=== PATIENT | male | born 1960 | race Caucasian/White ===

== ENCOUNTER 2017-04-29 08:27 | Emergency (ER) | payer BC ==
--- NOTE | 2017-04-29 09:19 | EDM.PDOC ---
<Amy Mcginnis - Last Filed: 04/29/17 09:12> ED HPI GENERAL MEDICAL PROBLEM - General Chief Complaint: Gastrointestinal Problem Stated Complaint: COUGH/CONGESTION-NO APPETITE Time Seen by Provider: 04/29/17 08:52 - History of Present Illness INITIAL COMMENTS - FREE TEXT/NARRATIVE: Patient is a 57 year old male here today for complaints of body aches and flu- like symptoms since Thursday. He reports chills, fever, dry scratchy throat and nonproductive cough. He has had N/V, dry heaves, and no appetite due to his nausea. He has also had ongoing diarrhea since Thursday night. He denies headaches , chest pain, or hemoptysis, or bloody stools. He recently traveled to [place]. He did not receive a flu vaccine but not had any known exposure to illness. He has a history of CABGx3 and mechanical valve replacement in 2007. He is on warfarin and aspirin therapy. - Related Data Allergies Allergy/AdvReac Type Severity Reaction Status Date / Time No Known Allergies Allergy Verified 04/29/17 08:41 Home Meds: Home Meds Aspirin [Halfprin] 81 mg PO DAILY 04/29/17 [History] Crestor. 1 tab PO DAILY 04/29/17 [History] Metoprolol. 1 tab PO DAILY 04/29/17 [History] Warfarin Sodium [Coumadin] 7.5 mg PO MOWEFR 04/29/17 [History] Warfarin [Coumadin] 5 mg PO SUTUTHSA 04/29/17 [History] Past Medical History Cardiovascular History: Reports: [place] - Past Surgical History HEENT Surgical History: Reports: Tonsillectomy Cardiovascular Surgical History: Reports: Valve Replacement, Other (See Below) Other Cardiovascular Surgeries/Procedures: triple bypass Social & Family History - Tobacco Use Smoking Status *Q: Never Smoker Second Hand Smoke Exposure: No - Caffeine Use Caffeine Use: Reports: Soda - Recreational Drug Use Recreational Drug Use: No ED ROS GENERAL - Review of Systems Constitutional: Reports: Fever, Chills, Fatigue, Decreased Appetite HEENT: Reports: No Symptoms Respiratory: Reports: Cough. Denies: Shortness of Breath, Hemoptysis Cardiovascular: Denies: Chest Pain Endocrine: Reports: Fatigue GI/Abdominal: Reports: Diarrhea, Decreased Appetite, Nausea, Vomiting. Denies: Abdominal Pain, Bloody Stool, Melena Musculoskeletal: Reports: No Symptoms Skin: Reports: No Symptoms Neurological: Reports: No Symptoms Psychiatric: Reports: No Symptoms Hematologic/Lymphatic: Reports: No Symptoms Immunologic: Reports: No Symptoms ED EXAM, GI/ABD - Physical Exam Exam Limited By: No Limitations General Appearance: Alert, No Apparent Distress Ears: Normal External Exam Nose: Normal Inspection. No: Nasal Swelling Throat/Mouth: Normal Inspection Head: Atraumatic. No: Sinus Tenderness Respiratory/Chest: No Respiratory Distress, Wheezing (minor expiratory) Cardiovascular: Normal Peripheral Pulses, Regular Rate, Rhythm, Other ( mechanical valve) GI/Abdominal Exam: Normal Bowel Sounds, Soft, Non-Tender, No Distention Extremities: Normal Inspection Neurological: Alert, Oriented Course - Vital Signs Last Recorded V/S: Last Vital Signs Temp 96.5 F 04/29/17 08:43 Pulse 80 04/29/17 08:43 Resp 18 04/29/17 08:43 BP 151/95 H 04/29/17 08:43 Pulse Ox 95 04/29/17 08:43 - Orders/Labs/Meds Orders: Active Orders 24 hr Category Date Time Status Sodium Chloride 0.9% [Normal Saline] 1,000 ml Med 04/29/17 09:45 Active IV ONETIME Medication Orders Sodium Chloride (Normal Saline) 1,000 mls @ 999 mls/hr IV ONETIME SAPPHIRE Last Admin: 04/29/17 09:57 Dose: 999 mls/hr Meds: Medications Generic Name Dose Route Start Last Admin Trade Name Freq PRN Reason Stop Dose Admin Sodium Chloride 1,000 mls @ 999 mls/hr 04/29/17 09:45 04/29/17 09:57 Normal Saline IV 999 mls/hr ONETIME SAPPHIRE Administration Discontinued Medications Generic Name Dose Route Start Last Admin Trade Name Freq PRN Reason Stop Dose Admin Ondansetron HCl 4 mg 04/29/17 09:43 04/29/17 09:57 Zofran IVPUSH 04/29/17 09:44 4 mg ONETIME ONE Administration Departure - Departure Disposition: Home, Self-Care 01 Clinical Impression: Influenza A - Discharge Information Instructions: Influenza, Adult, [id number] Referrals: Bassam Giles MD [Primary Care Provider] - Forms: ED Department Discharge Additional Instructions: Rest, clear liquids and bland diet as tolerated, probiotic 2-3 times daily to help your diarrhea, vitamin C or multivitamin recommended. Vaporizer or steam as needed, Tylenol 2-3 times daily as needed. Clinic if not much better within 2 -3 days as expected, return to ED as needed if symptoms worsening in any way. - My Orders Last 24 Hours: My Active Orders 04/29/17 09:45 Sodium Chloride 0.9% [Normal Saline] 1,000 ml IV ONETIME - Assessment/Plan Last 24 Hours: My Active Orders 04/29/17 09:45 Sodium Chloride 0.9% [Normal Saline] 1,000 ml IV ONETIME <Luis Eduardo Nesbitt - Last Filed: 04/29/17 13:10> ED HPI GENERAL MEDICAL PROBLEM - General Source of Information: Reports: Patient, RN Notes Reviewed ED ROS GENERAL - Review of Systems Review Of Systems: See Below ED EXAM, GI/ABD - Physical Exam Exam: See Below Course - Re-Assessments/Exams Free Text/Narrative Re-Assessment/Exam: 04/29/17 13:09 I agree with hx and exam as documented by Amy Reed, influenza screen did come back positive. Chest x-ray normal. He does feel somewhat better after 1 L of IV fluid, discharge instructions as documented Departure - Departure Time of Disposition: 11:36 Condition: Fair
[2017-04-29] MEDS: Sodium Chloride 0.9% 1,000 ML IV SCH (09:57)
[2017-04-29] MEDS: Ondansetron 4 MG/2 ML SDV IVPUSH ONE (09:57)
--- NOTE | 2017-04-29 10:37 | CR ---
Chest: Portable view of the chest was obtained. Comparison: Prior chest x-ray of 02/06/09. Heart is enlarged. Sternotomy is noted for prosthetic heart valve. Lungs are clear. Bony structures are grossly intact. Impression: 1. Nothing acute is appreciated on portable chest x-ray. Diagnostic code #2
== END 2017-04-29 11:50 | disposition home or self-care (01) ==
LOC: JD.ED 08:27
DX: J10.1 Influenza due to other identified influenza virus with other respiratory manifestations (principal); Z79.82 Long term (current) use of aspirin; Z95.1 Presence of aortocoronary bypass graft
CPT/HCPCS: 71045; 87804; 96361; 96374; 99284; J2405; J7040

== ENCOUNTER 2019-01-07 09:22 | Emergency (ER) | payer BC ==
--- NOTE | 2019-01-07 10:08 | EDM.PDOC ---
<Alanna Landis - Last Filed: 01/07/19 10:08> ED HPI GENERAL MEDICAL PROBLEM - General Chief Complaint: Respiratory Problem Stated Complaint: SOB AND WEAK Time Seen by Provider: 01/07/19 10:05 - History of Present Illness INITIAL COMMENTS - FREE TEXT/NARRATIVE: Patient is a 58 year old male with known cardiovascular history including stent placement and valve replacement who presents to the ED for evaluation of worsening shortness of breath and cough. The patient was evaluated on Thursday for muscle aches, decreased appetite and shortness of breath with chest xrays and influenza screening, both of which were negative per the patient. The patient told that he had a viral illness. Since Thursday, the patient notes that he has had worsening shortness of breath, development of a productive cough, continued decreased appetite and nause. He has noted improvement of his body aches however. He has not had any vomiting since Thursday and denies hematoemesis. Patient denies constipation, diarrhea, changes in stool, difficulty urinating, pain with urination or changes in skin. He does report that he feels like he had a fever on and off since Thursday, but has not taken his temperature. He also notes a 10 pound weight loss in this week. He denies recent travel. He does note that other people at work seem to be sick with a similar illness. He has attempted to take Tylenol and Mucinex, with minimal improvement. Onset: Gradual Duration: Day(s): Headache Pain Score (Numeric/FACES): 2 - Related Data Allergies Allergy/AdvReac Type Severity Reaction Status Date / Time No Known Allergies Allergy Verified 01/07/19 09:29 Home Meds: Home Meds Aspirin [Halfprin] 81 mg PO DAILY 04/29/17 [History] Warfarin Sodium [Coumadin] 7.5 mg PO MOFR 04/29/17 [History] Warfarin [Coumadin] 5 mg PO SUTUWETHSA 04/29/17 [History] Albuterol [Proventil HFA] 2 puff INH Q4H PRN #1 inhaler 01/07/19 [Rx] Codeine/Promethazine [Phenergan with Codeine] 5 - 10 ml PO Q6HR PRN #300 ml 03/27 [Rx] Doxycycline [Vibramycin] 100 mg PO BID #14 cap 01/07/19 [Rx] Losartan/Hydrochlorothiazide [Hyzaar 100-12.5 Tablet] 12.5 - 100 mg PO DAILY 03/27 [History] Metoprolol Tartrate 50 mg PO DAILY 01/07/19 [History] Rosuvastatin Calcium 20 mg PO DAILY 01/07/19 [History] Ubidecarenone [Coenzyme Q10] 100 mg PO DAILY 01/07/19 [History] Past Medical History Cardiovascular History: Reports: High Cholesterol, Hypertension, PA Respiratory History: Reports: Bronchitis, Recurrent, Pneumonia, Recurrent Neurological History: Reports: Migraines Endocrine/Metabolic History: Reports: Diabetes, Type II Other Endocrine/Metabolic History: short-term DM after PA, had hypoglycemia. Oncologic (Cancer) History: Reports: Basal Cell Carcinoma Dermatologic History: Reports: Other (See Below) Other Dermatologic History: skin CA. - Infectious Disease History Infectious Disease History: Reports: Chicken Pox, Measles, Mumps - Past Surgical History HEENT Surgical History: Reports: LASIK, Tonsillectomy Cardiovascular Surgical History: Reports: Valve Replacement, Other (See Below) Other Cardiovascular Surgeries/Procedures: triple bypass GI Surgical History: Reports: Colonoscopy Social & Family History - Tobacco Use Smoking Status *Q: Never Smoker Second Hand Smoke Exposure: No - Caffeine Use Caffeine Use: Reports: Other Other Caffeine Use: cappichino - Recreational Drug Use Recreational Drug Use: No ED ROS GENERAL - Review of Systems Review Of Systems: See Below Constitutional: Reports: Fever (Subjective), Chills (Worse on Thursday), Decreased Appetite, Weight Loss (10 pound weight loss this week ) HEENT: Reports: No Symptoms, Throat Pain (Attributes to cough). Denies: Ear Pain, Eye Discharge, Eye Pain, Hearing Loss, Rhinitis, Vision Change Respiratory: Reports: Shortness of Breath, Cough Cardiovascular: Reports: Chest Pain, Lightheadedness. Denies: Edema, Palpitations GI/Abdominal: Reports: Anorexia, Decreased Appetite. Denies: Abdominal Pain, Black Stool, Bloody Stool, Constipation, Diarrhea, Hematemesis, Hematochezia, Melena : Reports: No Symptoms Musculoskeletal: Reports: Muscle Pain (Improved since thursday) Skin: Reports: No Symptoms Neurological: Reports: Headache (Throbbing) Psychiatric: Reports: No Symptoms Immunologic: Reports: No Symptoms ED EXAM, GENERAL - Physical Exam Exam: See Below () General Appearance: Alert, WD/WN, No Apparent Distress, Other (Vitals: Temp 98.2 , Pulse 98, Respirations 18, BP 139/88, Pulse Ox 91% on RA) Ears: Normal External Exam, Hearing Grossly Normal Nose: Normal Inspection Throat/Mouth: Normal Inspection, Normal Lips, Normal Voice Neck: Normal Inspection Respiratory/Chest: Chest Non-Tender, Decreased Breath Sounds, Rhonchi (Left lower base), Wheezing Cardiovascular: Normal Peripheral Pulses, No Gallop, No JVD, Other (Grade 3/4 click due to known valve replacement) Peripheral Pulses: 2+: Radial (L), Radial (R), Posterior Tibial (L), Posterior Tibial (R) GI/Abdominal: Normal Bowel Sounds, Soft, Non-Tender, No Organomegaly, No Distention Back Exam: Normal Inspection Extremities: Normal Inspection, Non-Tender, No Pedal Edema, Normal Capillary Refill Neurological: Alert, Oriented, CN II-XII Intact, Normal Cognition Psychiatric: Normal Affect, Normal Mood Skin Exam: Warm, Dry, Intact, Normal Color, No Rash Course - Vital Signs Last Recorded V/S: Last Vital Signs Temp 99.0 F 01/07/19 11:50 Pulse 84 01/07/19 11:50 Resp 16 01/07/19 11:50 BP 130/83 01/07/19 11:50 Pulse Ox 96 01/07/19 11:50 - Orders/Labs/Meds Orders: Active Orders 24 hr Category Date Time Status Cardiac Monitoring [RC] . DIRECTED Care 01/07/19 10:28 Active Oxygen Therapy [RC] PRN Care 01/07/19 10:28 Active Oxygen Therapy, ED [RC] ASDIRECTED Care 01/07/19 10:14 Active Peripheral IV Care [RC] . DIRECTED Care 01/07/19 10:28 Active RT Aerosol Therapy [RC] ASDIRECTED Care 01/07/19 10:29 Active Sodium Chloride 0.9% [Normal Saline] 1,000 ml Med 01/07/19 10:30 Active IV .BOLUS Sodium Chloride 0.9% [Saline Flush] Med 01/07/19 10:28 Active 10 ml FLUSH ASDIRECTED PRN Peripheral IV Insertion Adult [OM.PC] Stat Oth 01/07/19 10:28 Ordered Medication Orders Sodium Chloride (Normal Saline) 1,000 mls @ 1,000 mls/hr IV .BOLUS SAPPHIRE Last Admin: 01/07/19 10:49 Dose: 1,000 mls/hr Sodium Chloride (Saline Flush) 10 ml FLUSH ASDIRECTED PRN PRN Reason: Keep Vein Open Last Admin: 01/07/19 10:40 Dose: 10 ml Labs: Laboratory Tests 01/07/19 01/07/19 Range/Units 10:40 10:40 WBC 7.60 (4.23-9.07) K/mm3 RBC 4.90 (4.63-6.08) M/mm3 Hgb 14.3 (13.7-17.5) gm/dl Hct 42.4 (40.1-51.0) % MCV 86.5 (79.0-92.2) fl MCH 29.2 (25.7-32.2) pg MCHC 33.7 (32.2-35.5) g/dl RDW Std Deviation 44.0 H (35.1-43.9) fL Plt Count 210 (163-337) K/mm3 MPV 10.4 (9.4-12.3) fl Neut % (Auto) 77.1 H (34.0-67.9) % Lymph % (Auto) 8.3 L (21.8-53.1) % [place] % (Auto) 14.2 H (5.3-12.2) % Eos % (Auto) 0 L (0.8-7.0) Baso % (Auto) 0.3 (0.1-1.2) % Neut # (Auto) 5.86 H (1.78-5.38) K/mm3 Lymph # (Auto) 0.63 L (1.32-3.57) K/mm3 [place] # (Auto) 1.08 H (0.30-0.82) K/mm3 Eos # (Auto) 0.00 L (0.04-0.54) K/mm3 Baso # (Auto) 0.02 (0.01-0.08) K/mm3 Manual Slide Review Abnormal smear Sodium 139 (136-145) mEq/L Potassium 3.8 (3.5-5.1) mEq/L Chloride 102 (98-107) mEq/L Carbon Dioxide 28 (21-32) mEq/L Anion Gap 12.8 (5-15) BUN 16 (7-18) mg/dL Creatinine 1.0 (0.7-1.3) mg/dL Est Cr Clr Drug Dosing 102.71 mL/min Estimated GFR (MDRD) > 60 (>60) mL/min BUN/Creatinine Ratio 16.0 (14-18) Glucose 142 H (74-106) mg/dL Calcium 9.2 (8.5-10.1) mg/dL Total Bilirubin 0.8 (0.2-1.0) mg/dL AST 41 H (15-37) U/L ALT 59 (16-63) U/L Alkaline Phosphatase 74 (46-116) U/L C-Reactive Protein 10.0 H* (<1.0) mg/dL Total Protein 7.5 (6.4-8.2) g/dl Albumin 3.5 (3.4-5.0) g/dl Globulin 4.0 gm/dL Albumin/Globulin Ratio 0.9 L (1-2) Meds: Medications Generic Name Dose Route Start Last Admin Trade Name Freq PRN Reason Stop Dose Admin Sodium Chloride 1,000 mls @ 1,000 mls/hr 01/07/19 10:30 01/07/19 10:49 Normal Saline IV 1,000 mls/hr .BOLUS SAPPHIRE Administration Sodium Chloride 10 ml 01/07/19 10:28 01/07/19 10:40 Saline Flush FLUSH 10 ml ASDIRECTED PRN Administration Keep Vein Open Discontinued Medications Generic Name Dose Route Start Last Admin Trade Name Freq PRN Reason Stop Dose Admin Albuterol/Ipratropium 3 ml 01/07/19 10:29 01/07/19 11:00 Duoneb 3.0-0.5 Mg/3 Ml NEB 01/07/19 10:30 3 ml ONETIME ONE Administration Departure - Departure Disposition: Admitted As Inpatient 67 Clinical Impression: Bronchitis - Discharge Information Prescriptions: Codeine/Promethazine [Phenergan with Codeine] 5 - 10 ml PO Q6HR PRN #300 ml PRN Reason: Cough Albuterol [Proventil HFA] 2 puff INH Q4H PRN #1 inhaler PRN Reason: Shortness Of Breath Doxycycline [Vibramycin] 100 mg PO BID #14 cap Referrals: Bassam Giles MD [Primary Care Provider] - 1 Week Forms: ED Department Discharge Additional Instructions: Take the doxycycline 2 times per day for 7 days. Use the albuterol inhaler 2 puffs every 4 to 6 hours as needed for shortness of breath. Take the phenergan with codeine 5 to 10 mls every 6 hours as needed for cough. Follow up with Dr Giles within a week. Have your INR checked within a week. The doxycycline can affect the coumadin. Please return if you are worse. - My Orders Last 24 Hours: My Active Orders 01/07/19 10:14 Oxygen Therapy, ED [RC] ASDIRECTED 01/07/19 10:28 Cardiac Monitoring [RC] . DIRECTED Oxygen Therapy [RC] PRN Peripheral IV Care [RC] . DIRECTED Sodium Chloride 0.9% [Saline Flush] 10 ml FLUSH ASDIRECTED PRN Peripheral IV Insertion Adult [OM.PC] Stat 01/07/19 10:29 RT Aerosol Therapy [RC] ASDIRECTED 01/07/19 10:30 Sodium Chloride 0.9% [Normal Saline] 1,000 ml IV .BOLUS - Assessment/Plan Last 24 Hours: My Active Orders 01/07/19 10:14 Oxygen Therapy, ED [RC] ASDIRECTED 01/07/19 10:28 Cardiac Monitoring [RC] . DIRECTED Oxygen Therapy [RC] PRN Peripheral IV Care [RC] . DIRECTED Sodium Chloride 0.9% [Saline Flush] 10 ml FLUSH ASDIRECTED PRN Peripheral IV Insertion Adult [OM.PC] Stat 01/07/19 10:29 RT Aerosol Therapy [RC] ASDIRECTED 01/07/19 10:30 Sodium Chloride 0.9% [Normal Saline] 1,000 ml IV .BOLUS <Galindo Mcpherson - Last Filed: 01/07/19 12:34> ED HPI GENERAL MEDICAL PROBLEM - History of Present Illness Severity: Moderate Improves with: Reports: None Worsens with: Reports: None Associated Symptoms: Reports: Cough, Fever/Chills, Shortness of Breath. Denies : Chest Pain, Headaches, Nausea/Vomiting ED EXAM, GENERAL - Physical Exam Exam Limited By: No Limitations Course - Re-Assessments/Exams Free Text/Narrative Re-Assessment/Exam: 01/07/19 12:24 I examined the patient myself and I agree with Alanna's assessment and plan. I ordered an IV saline lock, CXR, labs and duoneb. His CXR shows nothing acute. His CBC looks good. His glucose is elevated at 142. His AST is elevated at 41. His CRP is elevated at 10. He is oxygenating better. I will get him on some doxycycline, albuterol and something for the cough. Departure - Departure Time of Disposition: 12:28 Condition: Good - Discharge Information *PRESCRIPTION DRUG MONITORING PROGRAM REVIEWED*: No *COPY OF PRESCRIPTION DRUG MONITORING REPORT IN PATIENT KLAUDIA: No
[2019-01-07] MEDS ORDERED: Sodium Chloride 0.9% 10 ML Syringe FLUSH PRN (10:28)
[2019-01-07] MEDS ORDERED: Albuterol/Ipratropium 3.0-0.5 MG/3 ML Neb Soln NEB ONE (10:29)
[2019-01-07] MEDS ORDERED: Sodium Chloride 0.9% 1,000 ML IV SCH (10:30)
--- NOTE | 2019-01-07 12:01 | CR ---
Chest: Two views of the chest were obtained. Comparison: Prior chest x-ray of 04/29/17. Heart is enlarged. Previous sternotomy is noted with prosthetic heart valve. Lungs are clear with no acute parenchymal change. Bony structures appear within normal limits. Impression: 1. Mildly enlarged heart with previous prosthetic heart valve. 2. Nothing acute is seen. Diagnostic code #2
== END 2019-01-07 12:55 | disposition critical access hospital (66) ==
LOC: JD.ED 09:22
DX: J40 Bronchitis, not specified as acute or chronic (principal); I25.2 Old myocardial infarction; E11.9 Type 2 diabetes mellitus without complications; I10 Essential (primary) hypertension; E78.00 Pure hypercholesterolemia, unspecified; Z85.828 Personal history of other malignant neoplasm of skin; Z79.82 Long term (current) use of aspirin; Z79.01 Long term (current) use of anticoagulants; Z79.899 Other long term (current) drug therapy
CPT/HCPCS: 36415; 71046; 80053; 85025; 86140; 94640; J7040; 96360; 99283; 99285-25; J7620-GY

== ENCOUNTER 2019-10-16 08:07 | Emergency (ER) | payer BC ==
[2019-10-16] MEDS ORDERED: Cephalexin 500 MG Cap PO STA (08:47)
--- NOTE | 2019-10-16 08:52 | EDM.PDOC ---
ED HPI GENERAL MEDICAL PROBLEM - General Chief Complaint: Bite:Animal, Insect Stated Complaint: INSECT BITE TO FOOT-SWOLLEN,RED AND BLISTERING Time Seen by Provider: 10/16/19 08:17 Source of Information: Reports: Patient History Limitations: Reports: No Limitations - History of Present Illness INITIAL COMMENTS - FREE TEXT/NARRATIVE: Mr. Polanco is a very pleasant 59-year-old gentleman who now presents to the ED with essentially painless swelling and redness to the medial aspect of his right foot since yesterday, after either stepping on something sharp or being bitten by an insect while walking barefoot in his backyard this past evening, 10/13/2019. He states that it was dark, and a hole he could see was a something black on his foot, which he flicked off. He states that he really cannot say whether or not it was an insect or something inanimate. He has not had a fever. No prior similar reaction to insect bites. Here in the ED, the patient's initial BP is found to be elevated at 161/85, with bradycardia of 58 bpm. He is afebrile, saturating 97% on room air. Other than his right foot swelling, the patient denies recent fever, chills, sore throat, ear pain, nasal or sinus congestion, cough, dyspnea, chest pain, palpitations, nausea, vomiting, constipation, diarrhea, abdominal pain, urinary symptoms, recent weight gain or weight loss, recent bloody bowel movements or black bowel movements, recent joint aches, headaches, or rashes. The patient's PCP is Dr. Bassam Giles. His Joy Operator is Dr. Hitesh Arriola. - Related Data Allergies Allergy/AdvReac Type Severity Reaction Status Date / Time No Known Allergies Allergy Verified 01/07/19 09:29 Home Meds: Home Meds Aspirin [Halfprin] 81 mg PO DAILY 04/29/17 [History] Warfarin Sodium [Coumadin] 7.5 mg PO MOFR 04/29/17 [History] Warfarin [Coumadin] 5 mg PO SUTUWETHSA 04/29/17 [History] Losartan/Hydrochlorothiazide [Hyzaar 100-12.5 Tablet] 12.5 - 100 mg PO DAILY 01/07/19 [History] Metoprolol Tartrate 50 mg PO DAILY 01/07/19 [History] Rosuvastatin Calcium 20 mg PO DAILY 01/07/19 [History] Ubidecarenone [Coenzyme Q10] 100 mg PO DAILY 01/07/19 [History] cephALEXin [Keflex] 1 tab PO Q6H #40 capsule 10/16/19 [Rx] Past Medical History Cardiovascular History: Reports: CAD, High Cholesterol, Hypertension, [place] (2008) Endocrine/Metabolic History: Reports: Obesity/BMI 30+, Other (See Below) (Prediabetes) Oncologic (Cancer) History: Reports: Basal Cell Carcinoma (face) - Infectious Disease History Infectious Disease History: Reports: Chicken Pox, Measles, Mumps - Past Surgical History HEENT Surgical History: Reports: Adenoidectomy, LASIK (bilateral), Oral Surgery (wisdom teeth extracted), Tonsillectomy Cardiovascular Surgical History: Reports: Coronary Artery Bypass (x 3 vessel, 2007), Valve Replacement (mechanical - mary does joya know which valve, 2007) GI Surgical History: Reports: Colonoscopy (x 1) Oncologic Surgical History: Reports: Other (See Below) (BCC excised from face) Social & Family History - Family History Family Medical History: Noncontributory - Tobacco Use Smoking Status *Q: Never Smoker - Caffeine Use Caffeine Use: Reports: Other Other Caffeine Use: cappichino - Alcohol Use Alcohol Use History: Yes Alcohol Use Frequency: Socially - Recreational Drug Use Recreational Drug Use: Yes Drug Use in Last 12 Months: No Recreational Drug Type: Reports: Marijuana/Hashish (last smoked in HS) - Living Situation & Occupation Living situation: Reports: , with Spouse, with Family (1 son) Occupation: Employed (HVAC) ED ROS GENERAL - Review of Systems Review Of Systems: Comprehensive ROS is negative, except as noted in HPI. ED EXAM, SKIN/RASH Exam: See Below Exam Limited By: No Limitations General Appearance: Alert, WD/WN, No Apparent Distress Extremities: Other (There is erythema with mild swelling to the medial aspect of the right foot. A few small blisters are noted in a line extending anterior- posterior. Mild calor is associated with the erythema. Neurovascular status of the right lower extremity is intact.) Course - Vital Signs Last Recorded V/S: Last Vital Signs Temp 36.5 C 10/16/19 08:24 Pulse 58 L 10/16/19 08:24 Resp 16 10/16/19 08:24 BP 161/85 H 10/16/19 08:24 Pulse Ox 97 10/16/19 08:24 - Re-Assessments/Exams Free Text/Narrative Re-Assessment/Exam: 10/16/19 08:46 As above, the patient either stepped on something sharp or was bitten by an insect to the medial aspect of his right foot this past evening, 10/13/2019, then developed essentially painless swelling to the medial aspect of his right foot yesterday. While it is more likely than not that he is suffering from a local inflammatory reaction to an insect bite, I think, in this case, it would be better to err on the side of caution by treating this as an infectious process. The patient will therefore be started on oral Keflex, and I will submit a prescription to complete a 10-day course. In addition, however, I believe it would be prudent to treat this as a local inflammatory reaction to an insect bite by having him take an [id number] non-sedating antihistamine, and apply ice packs. In that case, resolution typically takes about 12 days. Departure - Departure Time of Disposition: 08:48 Disposition: Home, Self-Care 01 Condition: Good Clinical Impression: Cellulitis of right foot - Discharge Information *PRESCRIPTION DRUG MONITORING PROGRAM REVIEWED*: Not Applicable *COPY OF PRESCRIPTION DRUG MONITORING REPORT IN PATIENT KLAUDIA: Not Applicable Referrals: Bassam Giles MD [Primary Care Provider] - Hitesh Arriola MD [Ordering Only Provider] - Additional Instructions: You were seen in the emergency room for swelling and redness to the medial a spect of your right foot, that developed after you either stepped on something sharp or were bitten by an insect on evening, 10/13/2019. While it is most likely that you are suffering from a local inflammatory reaction to an insect bite, the possibility exists that this is an infectious process (cellulitis), therefore you have been started on the antibiotic Keflex, and a prescription for Keflex has been sent to the [facility], located just south and across the [address] from [facility]. The pharmacy will be open between noon and 4:00 this afternoon. Take 1 tablet of Keflex every 6 hours, as prescribed. Finish the entire prescription unless told otherwise by your doctor. In addition to the Keflex, we recommend that you treat this as a local inflammatory reaction to an insect bite, by taking an [id number] antihistamine, such as Fany, Zyrtec, or Xyzal, and apply ice packs to your foot for 10 to 15 minutes, up to 5 times a day. If this is a local inflammatory reaction to an insect bite, resolution typically takes about 12 days. If the swelling fails to improve, please follow-up with your PCP, Dr. Bassam Giles. If any other problems, please do not hesitate to return to the ER. Sepsis Event Note (ED) - Evaluation Sepsis Screening Result: No Definite Risk - Focused Exam Vital Signs: Vital Signs Temp Pulse Resp BP Pulse Ox 10/16/19 08:24 36.5 C 58 L 16 161/85 H 97
== END 2019-10-16 08:55 | disposition home or self-care (01) ==
LOC: JD.ED 08:07
DX: L03.115 Cellulitis of right lower limb (principal); I25.10 Atherosclerotic heart disease of native coronary artery without angina pectoris; E78.00 Pure hypercholesterolemia, unspecified; I10 Essential (primary) hypertension; E66.9 Obesity, unspecified; Z79.82 Long term (current) use of aspirin; Z79.01 Long term (current) use of anticoagulants; Z79.899 Other long term (current) drug therapy; Z68.32 Body mass index [BMI] 32.0-32.9, adult
CPT/HCPCS: 99283; A9270

== ENCOUNTER 2021-03-24 09:10 | Emergency (ER) | payer BC ==
[2021-03-24] MEDS ORDERED: Metoclopramide 10 MG/2 ML SDV IVPUSH ONE (09:38)
[2021-03-24] MEDS ORDERED: Dextrose 5%-Lactated Ringers 1,000 ML IV SCH (09:45)
[2021-03-24] MEDS ORDERED: Sodium Chloride 0.9% 1,000 ML IV SCH (11:15)
== END 2021-03-24 14:45 | disposition home or self-care (01) ==
LOC: JD.ED 09:10
DX: U07.1 COVID-19 (principal); R11.2 Nausea with vomiting, unspecified; R79.1 Abnormal coagulation profile; I25.10 Atherosclerotic heart disease of native coronary artery without angina pectoris; I10 Essential (primary) hypertension; I25.2 Old myocardial infarction; E66.9 Obesity, unspecified; Z68.30 Body mass index [BMI] 30.0-30.9, adult; Z86.16 Personal history of COVID-19; Z79.82 Long term (current) use of aspirin; Z79.01 Long term (current) use of anticoagulants; Z79.899 Other long term (current) drug therapy
CPT/HCPCS: 36415; 71045; 80053; 82009; 83605; 83735; 83880; 84484; 85025; 85610; 86140; 93005; 96374; 99284; J2765; J7030; J7121; 93010; 99285

== ENCOUNTER 2021-05-13 07:30 | Day surgery (SDC) | payer BC ==
[~2021-05-13 07:30] MED LIST: Lactated Ringers 1,000 ML IV SCH; Lidocaine 1% 4 ML ONE; Lidocaine 1%/Sod Bicarbonate in NS 8.4% 1 ML Syringe IDERM PRN; Propofol 200 MG/20 ML SDV ONE; Sodium Chloride 0.9% 10 ML Syringe FLUSH PRN; Sodium Chloride 0.9% 10 ML Syringe FLUSH SCH
[2021-05-13] MEDS ORDERED: Propofol 200 MG/20 ML SDV ONE (09:49)
== END 2021-05-13 10:45 | disposition home or self-care (01) ==
LOC: JD.SDS 07:30
PROVIDERS: ATTEND Surgery
DX: K62.1 Rectal polyp (principal); K57.31 Diverticulosis of large intestine without perforation or abscess with bleeding; K64.1 Second degree hemorrhoids; I10 Essential (primary) hypertension; I25.10 Atherosclerotic heart disease of native coronary artery without angina pectoris; E78.5 Hyperlipidemia, unspecified; Z79.899 Other long term (current) drug therapy; Z98.890 Other specified postprocedural states; Z79.82 Long term (current) use of aspirin
CPT/HCPCS: 45380; J2704; J7120; 00812

== ENCOUNTER 2022-05-22 10:25 | Emergency (ER) | payer BC ==
[2022-05-22] MEDS ORDERED: Iopamidol 755 Mg/ML 100 ML Bottle IVPUSH ONE (11:26)
[2022-05-22] MEDS ORDERED: Sodium Chloride 0.9% 1,000 ML IV SCH (11:30)
[2022-05-22] MEDS ORDERED: Sodium Chloride 0.9% 100 ML IV SCH (11:30)
[2022-05-22] MEDS: Sodium Chloride 0.9% 10 ML Syringe FLUSH PRN ×2 (11:49→12:04)
== END 2022-05-22 14:50 | disposition home or self-care (01) ==
LOC: JD.ED 10:25
DX: R20.2 Paresthesia of skin (principal); I25.10 Atherosclerotic heart disease of native coronary artery without angina pectoris; E78.00 Pure hypercholesterolemia, unspecified; E66.9 Obesity, unspecified; Z68.34 Body mass index [BMI] 34.0-34.9, adult; Z79.82 Long term (current) use of aspirin; Z79.899 Other long term (current) drug therapy; Z79.01 Long term (current) use of anticoagulants; Z95.1 Presence of aortocoronary bypass graft
CPT/HCPCS: 36415; 70450; 70496; 70498; 80053; 85025; 93005; 96360; 99284; J3490; J7030; Q9967